=== PATIENT | male | born 1995 | race Caucasian/White ===

== ENCOUNTER 2018-03-09 13:40 | Emergency (ER) | payer BC, SELFPAY ==
[2018-03-09 13:40] VITALS: BP 143/85; PULSE 111; RESP 16; TEMP 36.7; O2SAT 97; BMI 26.3
--- NOTE | 2018-03-09 14:07 | CT_ITS ---
STUDY: CT ABDOMEN AND PELVIS WITHOUT CONTRAST REASON FOR EXAM: Male, 22 years old. abdominal pain, diarrhea x 10 days, hx ulcerative colitis. RADIATION DOSAGE (If Supplied By Facility): CTDIvol = ( 7.98 ) mGy, DLP = ( 386.89 ) mGycm TECHNIQUE: Transaxial images were obtained from the dome of the diaphragm to the symphysis pubis without oral contrast, and without intravenous contrast. Sagittal and coronal images were reconstructed. Individualized dose optimization techniques were used for this CT. COMPARISON: None. FINDINGS: The visualized lung bases are unremarkable. The visualized portions of the heart are within normal limits. Normal liver. Normal gallbladder and extrahepatic biliary system. Normal spleen. Normal pancreas. Normal bilateral adrenal glands. Normal right kidney. Normal left kidney. Normal visualized stomach. Normal small intestine. There is circumferential thickening of the colon with pericolonic infiltration most prominent at the right hepatic flexure. There is non-visualization of the appendix. Normal abdominal aorta. Normal inferior vena cava. Normal retroperitoneum. Normal urinary bladder. Normal abdominal wall. Normal osseous structures. CT/Abdomen/Pelvis without Cont IMPRESSION: Diffuse thickening of the colon, consistent with colitis. Electronically Signed: Vamshi Patel MD at 15:30 EDT Tel , Service support ,
[2018-03-09 14:14] VITALS: BP 143/74; BP 144/91; BP 152/93; PULSE 104; PULSE 86; PULSE 88
[2018-03-09 14:30] LABS: Absolute Lymphocyte Count 1.76 X10^3/ul (0.83-4.51); Absolute Neutrophil Count 10.4 X10^3/uL (2.0-7.7); Basophil# 0.04 X10^3/uL; Basophil% 0.3 % (0-1); Eosinophil# 1.39 X10^3/uL; Eosinophils% 9.4 % (0-5); Erythrocyte Sedimentation Rate 13 mm/hr (0-15); Hemoglobin 13.3 g/dl (13.0-16.5); Lymphocyte # 1.76 X10^3/ul (4.0); Lymphocyte % 11.9 % (19-41); Mean Corp Hgb Conc 34.1 g/gl (32-36); Mean Corpuscular Hgb 29.4 pg (27.0-32.0); Mean Corpuscular Volume 86.1 fL (80-94); Monocyte# 1.13 X10^3/uL; Monocyte% 7.6 % (0-10); Neutrophil # 10.38 X10^3/uL (2.7-7.7); Neutrophil % 69.8 % (47-70); POSITIVE COUNT NO; POSITIVE DIFFERENTIAL NO; POSITIVE MORPHOLOGY NO; Platelet Count 352 K/mm3 (150-450); RBC Distribution Width CV 12.6 % (11.6-14.6); RBC Distribution Width SD 39.5 fl (35.1-43.9); Red Blood Count 4.53 M/mm3 (4.6-6.2); White Blood Count 14.9 K/mm3 (4.4-11.0)
[2018-03-09 14:40] LABS: Anion Gap 7 (5-15); BUN 13 mg/dL (7-18); BUN/Creat Ratio 9.5 RATIO (10-20); Calcium,Total 7.9 mg/dL (8.5-10.1); Chloride 101 mmol/L (98-107); Creatinine, Serum 1.37 mg/dL (0.70-1.30); EST Glomerular Filtration Rate 67 mL/min (>60); Est Glom Filt Rate - Afr Amer 82 mL/min (>60); Estimated Creatinine Clearance 88.55 ml/min; Glucose 89 mg/dL (74-106); Potassium 3.6 mmol/L (3.5-5.1); Sodium Level 135 mmol/L (136-145)
[2018-03-09 14:48] LABS: Lactic Acid 0.7 mmol/L (0.4-2.0)
[2018-03-09] MEDS: 0.9% Normal Saline 1,000 ML 125 ML IV (15:16)
[2018-03-09 16:18] VITALS: BP 161/86; PULSE 101; RESP 24; O2SAT 98
--- NOTE | 2018-03-09 16:28 | ED.VISSUMM ---
- ER Visit Summary Date of Service: 03/09/18 Chief Complaint: [Abdominal pain] History of Present Illness: The patient is a 22 M [presents to the emergency department with abdominal pain that started about a week ago. Patient states that she had a history of ulcerative colitis and he thought he was having a flare. Patient states he is passing nothing blood blood from his stool. Patient states he cannot eat. Patient has lost over 15 pounds in the last week. Patient was diagnosed with ulcerative colitis about 4 years ago and this is by far the worst flareup he has ever had. Patient denies any fevers. Patient denies any vomiting.] Physical Examination: [HEENT-PERRLA, EOMI. Cranial nerves II through XII grossly intact. TMs clear. Mucous membranes moist. No adenopathy. Cardiovascular-regular rate and rhythm without murmur or ectopy Lungs-clear to auscultation, chest wall stable without crepitus or subcu emphysema Abdomen-normoactive bowel sounds. Abdomen is soft. Patient has diffuse tenderness to palpation but seems to localize more to the left lower quadrant. There is no rebound, rigidity, or perineal signs. Extremities-intact ?4, normal range of motion, normal pulses, atraumatic] Test Results: [CBC with differential obtained showed a white count of 14.9, hemoglobin 13, hematocrit 39, platelets 352. Chemistries unremarkable. Lactate was 0.7. Orthostatics were negative. Sed rate was 13. CT scan of the abdomen pelvis showed colitis] Emergency Department Course and Treatment: [Patient case was discussed with Dr. Pantoja who stated that since we do not have GI coverage and he does not treat inflammatory bowel disease patient would require transfer. Patient would prefer to go to [facility]. Case was discussed with [facility] physician who accepted transfer of patient.] Treatment Plan: [Transfer to [facility] for further treatment and management. Patient was started on Solu-Medrol in the emergency department.] Disposition: [Transfer] Impression: [Abdominal pain Ulcerative colitis flare] This note was generated with [employer] dictation software. It may contain incorrect words, spelling, and punctuation that were not noted in review of the chart prior to signing ED Disposition - Plan for ED Patient: Chief Complaint: Abd Pain Referrals: Karlos Bell MD [Primary Care Provider] -
--- NOTE | 2018-03-09 16:31 | ED.DCSUM_ITS ---
- ER Visit Summary Date of Service: 03/09/18 Chief Complaint: [Abdominal pain] History of Present Illness: The patient is a 22 M [presents to the emergency department with abdominal pain that started about a week ago. Patient states that she had a history of ulcerative colitis and he thought he was having a flare. Patient states he is passing nothing blood blood from his stool. Patient states he cannot eat. Patient has lost over 15 pounds in the last week. Patient was diagnosed with ulcerative colitis about 4 years ago and this is by far the worst flareup he has ever had. Patient denies any fevers. Patient denies any vomiting.] Physical Examination: [HEENT-PERRLA, EOMI. Cranial nerves II through XII grossly intact. TMs clear. Mucous membranes moist. No adenopathy. Cardiovascular-regular rate and rhythm without murmur or ectopy Lungs-clear to auscultation, chest wall stable without crepitus or subcu emphysema Abdomen-normoactive bowel sounds. Abdomen is soft. Patient has diffuse tenderness to palpation but seems to localize more to the left lower quadrant. There is no rebound, rigidity, or perineal signs. Extremities-intact ?4, normal range of motion, normal pulses, atraumatic] Test Results: [CBC with differential obtained showed a white count of 14.9, hemoglobin 13, hematocrit 39, platelets 352. Chemistries unremarkable. Lactate was 0.7. Orthostatics were negative. Sed rate was 13. CT scan of the abdomen pelvis showed colitis] Emergency Department Course and Treatment: [Patient case was discussed with Dr. Pantoja who stated that since we do not have GI coverage and he does not treat inflammatory bowel disease patient would require transfer. Patient would prefer to go to [facility]. Case was discussed with [facility] physician who accepted transfer of patient.] Treatment Plan: [Transfer to [facility] for further treatment and management. Patient was started on Solu-Medrol in the emergency department.] Disposition: [Transfer] Impression: [Abdominal pain Ulcerative colitis flare] This note was generated with [employer] dictation software. It may contain incorrect words, spelling, and punctuation that were not noted in review of the chart prior to signing ED Disposition - Plan for ED Patient: Chief Complaint: Abd Pain Referrals: Karlos Bell MD [Primary Care Provider] -
[2018-03-09] MEDS: MethylPREDNISolone 125 MG/2 ML Vial IV (16:49)
[2018-03-09 17:03] VITALS: BP 163/73; PULSE 92; RESP 22; O2SAT 99
== END 2018-03-09 17:35 | disposition short-term general hospital (02) ==
PROVIDERS: Emergency Provider Emergency Medicine; Family Provider Family Medicine; PCP Family Medicine
DX: K51.90 Ulcerative colitis, unspecified, without complications (principal); Z79.899 Other long term (current) drug therapy
CPT/HCPCS: 74176; 80048; 83605; 85025; 85652; 96361; 96374; 99285; J7030; A4216

== ENCOUNTER → 2018-05-05 14:14 | Outpatient (CLI) | payer BC, SELFPAY ==
[2018-05-05 16:00] LABS: Hematocrit 38.9 % (40-54); Hemoglobin 12.2 g/dl (13.0-16.5); Mean Corp Hgb Conc 31.4 g/gl (32-36); Mean Corpuscular Hgb 27.1 pg (27.0-32.0); Mean Corpuscular Volume 86.4 fL (80-94); Mean Platelet Vol. 10.3 fl (6.2-12.0); Platelet Count 405 K/mm3 (150-450); RBC Distribution Width CV 13.1 % (11.6-14.6); RBC Distribution Width SD 41.7 fl (35.1-43.9); White Blood Count 7.3 K/mm3 (4.4-11.0)
[2018-05-05 16:02] LABS: Scan Indicated on CBC? Y/N NO
[2018-05-05 16:11] LABS: ALB/GLOB Ratio 0.8 RATIO (0.9-2.4); AST(SGOT) 22 U/L (15-37); Alanine Aminotransfer ALT/SGPT 44 U/L (16-61); Albumin, Serum 3.4 g/dL (3.2-5.0); Alkaline Phosphatase 64 U/L (45-117); Anion Gap 7 (5-15); BUN 16 mg/dL (7-18); BUN/Creat Ratio 9.8 RATIO (10-20); Calcium,Total 8.6 mg/dL (8.5-10.1); Chloride 103 mmol/L (98-107); Creatinine, Serum 1.64 mg/dL (0.70-1.30); EST Glomerular Filtration Rate 55 mL/min (>60); Est Glom Filt Rate - Afr Amer 66 mL/min (>60); Globulin 4.2 g/dL (2.2-4.2); Glucose 86 mg/dL (74-106); Protein, Total 7.6 g/dL (6.4-8.2); Sodium Level 140 mmol/L (136-145)
[2018-05-05 16:15] LABS: Erythrocyte Sedimentation Rate 30 mm/hr (0-15)
== END ==
PROVIDERS: Family Provider Family Medicine; PCP Family Medicine
DX: K62.5 Hemorrhage of anus and rectum (principal); R19.7 Diarrhea, unspecified; K51.90 Ulcerative colitis, unspecified, without complications
CPT/HCPCS: 36415; 80053; 85027; 85652; 86140

== ENCOUNTER → 2018-06-06 10:07 | Outpatient (CLI) | payer BC, SELFPAY ==
[2018-06-06 12:17] LABS: Erythrocyte Sedimentation Rate 30 mm/hr (0-15)
[2018-06-06 12:20] LABS: Absolute Lymphocyte Count 0.76 X10^3/ul (0.83-4.51); Absolute Neutrophil Count 12.7 X10^3/uL (2.0-7.7); Basophil# 0.02 X10^3/uL; Basophil% 0.1 % (0-1); Eosinophil# 0.01 X10^3/uL; Eosinophils% 0.1 % (0-5); Hematocrit 34.1 % (40-54); Hemoglobin 10.7 g/dl (13.0-16.5); Lymphocyte # 0.76 X10^3/ul (4.0); Lymphocyte % 5.5 % (19-41); Mean Corp Hgb Conc 31.4 g/gl (32-36); Mean Corpuscular Hgb 26.8 pg (27.0-32.0); Mean Corpuscular Volume 85.5 fL (80-94); Mean Platelet Vol. 10.2 fl (6.2-12.0); Monocyte% 1.5 % (0-10); Neutrophil # 12.72 X10^3/uL (2.7-7.7); Neutrophil % 92.2 % (47-70); Platelet Count 520 K/mm3 (150-450); RBC Distribution Width CV 14.1 % (11.6-14.6); RBC Distribution Width SD 43.3 fl (35.1-43.9); Red Blood Count 3.99 M/mm3 (4.6-6.2); White Blood Count 13.8 K/mm3 (4.4-11.0)
[2018-06-06 12:22] LABS: POSITIVE COUNT NO; POSITIVE MORPHOLOGY NO
[2018-06-06 12:41] LABS: ALB/GLOB Ratio 0.8 RATIO (0.9-2.4); AST(SGOT) 49 U/L (15-37); Alanine Aminotransfer ALT/SGPT 43 U/L (16-61); Albumin, Serum 3.2 g/dL (3.2-5.0); Alkaline Phosphatase 54 U/L (45-117); Anion Gap 8 (5-15); BUN 14 mg/dL (7-18); BUN/Creat Ratio 10.2 RATIO (10-20); CRP < 2.90 mg/L (0.0-3.0); Calcium,Total 8.7 mg/dL (8.5-10.1); Chloride 107 mmol/L (98-107); Creatinine, Serum 1.37 mg/dL (0.70-1.30); EST Glomerular Filtration Rate 67 mL/min (>60); Est Glom Filt Rate - Afr Amer 81 mL/min (>60); Globulin 3.8 g/dL (2.2-4.2); Glucose 132 mg/dL (74-106); Potassium 3.9 mmol/L (3.5-5.1); Sodium Level 141 mmol/L (136-145)
[2018-06-13 03:07] LABS: HEPATITIS B SURFACE AG Negative (Negative); Hepatitis A AB, Total Negative (Negative); Hepatitis B Core Ab Total Negative (Negative); QNTFERON TB Ag Minus Nil Value < 0 IU/mL (.); QNTFERON TB Ag Value 0.01 IU/mL (.); QNTFERON TB Mitogen Value > 10.00 IU/mL (.); QNTFERON TB Nil Value 0.02 IU/mL (.)
[2018-06-13 11:45] LABS: Hep B Surface Antibodies Non Reactive (.); Hep C Antibodies 0.1 s/co ratio (0.0-0.9); Hepatitis B Core AB IgM Negative (Negative); QNTIFERON TB Gold Negative (Negative)
== END ==
PROVIDERS: Family Provider Family Medicine; PCP Family Medicine
DX: K51.90 Ulcerative colitis, unspecified, without complications (principal); K62.5 Hemorrhage of anus and rectum; A04.72 Enterocolitis due to Clostridium difficile, not specified as recurrent
CPT/HCPCS: 36415; 80053; 85025; 85652; 86140; 86480; 86704; 86705; 86706; 86708; 86803; 87340

== ENCOUNTER → 2018-11-10 09:00 | Outpatient (CLI) | payer BC, SELFPAY ==
[2018-11-10 10:51] LABS: Erythrocyte Sedimentation Rate 16 mm/hr (0-15)
[2018-11-10 11:02] LABS: Hematocrit 38.7 % (40-54); Hemoglobin 11.8 g/dl (13.0-16.5); Mean Corp Hgb Conc 30.5 g/gl (32-36); Mean Corpuscular Hgb 22.6 pg (27.0-32.0); Mean Corpuscular Volume 74.1 fL (80-94); Mean Platelet Vol. 11.6 fl (6.2-12.0); Platelet Count 399 K/mm3 (150-450); RBC Distribution Width CV 17.2 % (11.6-14.6); RBC Distribution Width SD 45.7 fl (35.1-43.9); Red Blood Count 5.22 M/mm3 (4.6-6.2); White Blood Count 5.6 K/mm3 (4.4-11.0)
[2018-11-10 11:05] LABS: Scan Indicated on CBC? Y/N YES- FLAGS NOTED
[2018-11-10 11:19] LABS: AST(SGOT) 24 U/L (15-37); Alanine Aminotransfer ALT/SGPT 30 U/L (16-61); Albumin, Serum 3.9 g/dL (3.2-5.0); Alkaline Phosphatase 74 U/L (45-117); Anion Gap 11 (5-15); BUN 20 mg/dL (7-18); BUN/Creat Ratio 16.9 RATIO (10-20); CRP < 2.90 mg/L (0.0-3.0); Calcium,Total 8.5 mg/dL (8.5-10.1); Chloride 106 mmol/L (98-107); Creatinine, Serum 1.18 mg/dL (0.70-1.30); EST Glomerular Filtration Rate 80 mL/min (>60); Est Glom Filt Rate - Afr Amer 96 mL/min (>60); Globulin 3.9 g/dL (2.2-4.2); Glucose 69 mg/dL (74-106); Potassium 3.9 mmol/L (3.5-5.1); Protein, Total 7.8 g/dL (6.4-8.2); Sodium Level 141 mmol/L (136-145)
== END ==
PROVIDERS: Family Provider Family Medicine; PCP Family Medicine
DX: K51.90 Ulcerative colitis, unspecified, without complications (principal); A04.72 Enterocolitis due to Clostridium difficile, not specified as recurrent
CPT/HCPCS: 36415; 80053; 85027; 85652; 86140